=== PATIENT | male | born 1970 ===

== ENCOUNTER 2024-07-17 04:19 | Day surgery (SDC) | payer OTHER ==
[2024-07-13 15:48] VITALS: BMI 31.8
[2024-07-17 10:34] VITALS: RESP 18
[2024-07-17] MEDS ORDERED: MIDAZOLAM HCL 2 MG/2 ML SINGLE DOSE VIAL ONE (11:07)
[2024-07-17] MEDS ORDERED: PROPOFOL 20 ML ONE (11:07)
[2024-07-17] MEDS ORDERED: ONDANSETRON 4 MG/2 ML VIAL ONE (11:25)
[2024-07-17 12:40] VITALS: BP 123/81; PULSE 58; TEMP 97.5
== END 2024-07-17 13:20 | disposition home or self-care (01) ==
LOC: JASU-SURG 04:19 → EDSEX 17:30
PROVIDERS: ATTEND Urology
PROC: 0TF3XZZ Fragmentation in Right Kidney Pelvis, External Approach (ICD-10-PCS; principal; 2024-07-17 12:00)
DX: N20.0 Calculus of kidney (principal)
CPT/HCPCS: 82962